=== PATIENT | female | born 1955 | race Caucasian/White ===

== ENCOUNTER 2017-07-26 20:26 | Inpatient (IN) | payer OTHER ==
[~2017-07-26] VITALS: Ht 165.1 cm; Wt 51.8 kg
[2017-07-26 21:49] LABS: HEMATOCRIT 36.2 % (36.0-46.0); MCH 26.7 PG (29.0-34.0); MCHC 32.9 G/DL (30.0-36.0); MEAN PLAT.VOLUME 10.6 uM^3 (9.5-12.4); PLATELET COUNT 150 K/uL (156-360); RBC DIS.WIDTH-CV 14.6 % (11.8-14.6); RBC DIS.WIDTH-SD 43.5 % (39-53); RED BLOOD COUNT 4.45 M/uL (3.80-5.20); WHITE BLOOD COUNT 10.8 K/uL (4.1-10.2)
[2017-07-26 21:52] LABS: MCV 81.3 FL (83-99)
[2017-07-26 22:03] LABS: CHLORIDE 95 mEq/L (99-109); POTASSIUM 3.9 mEq/L (3.7-5.4); SODIUM 131 mEq/L (136-147)
[2017-07-26 22:06] LABS: GLUCOSE 117 mg/dL (70-99)
[2017-07-26 22:07] LABS: ANION GAP 12 MEQ/L (2-14)
[2017-07-26 22:08] LABS: TOTAL BILIRUBIN 1.3 mg/dL (0.0-1.0)
[2017-07-26 22:09] LABS: ALKALINE PHOSPHATASE 140 IU/L (3-129); GFR ESTIMATE (CALCULATED) > 59 mL/min/
[2017-07-26 22:10] LABS: UREA NITROGEN (BUN) 8 mg/dL (9-23)
[2017-07-26 22:13] LABS: LIPASE 12 U/L (1.0-51.0)
[2017-07-26 22:15] LABS: TROP-I INTERPRETATION NEGATIVE; TROPONIN-I 0.02 ng/mL (0.0-0.30)
[2017-07-27] VITALS (12 sets, daily range): BP systolic 88–126; BP diastolic 44–64
[2017-07-27] MEDS ORDERED: FLUARIX QU60 MCG/0.4 IM (00:59)
[2017-07-27] MEDS ORDERED: SINGULAIR10 MG PO (00:59)
[2017-07-27] MEDS ORDERED: METOPROLOL SUCC25 MG PO (01:00)
[2017-07-27] MEDS ORDERED: LO-DOSE ASPIRIN81 M1 PO (01:00)
[2017-07-27 02:13] LABS: MAGNESIUM 1.7 mg/dL (1.3-2.7)
[2017-07-27 08:44] LABS: HEMATOCRIT 31.8 % (36.0-46.0); MCH 26.1 PG (29.0-34.0); MCHC 32.1 G/DL (30.0-36.0); MCV 81.3 FL (83-99); MEAN PLAT.VOLUME 10.6 uM^3 (9.5-12.4); PLATELET COUNT 119 K/uL (156-360); RBC DIS.WIDTH-SD 44.5 % (39-53); RED BLOOD COUNT 3.91 M/uL (3.80-5.20); WHITE BLOOD COUNT 8.3 K/uL (4.1-10.2)
[2017-07-27 09:16] LABS: ANION GAP 10 MEQ/L (2-14); CHLORIDE 100 MEQ/L (99-109); GFR ESTIMATE (CALCULATED) > 59 mL/min/; GLUCOSE 144 mg/dL (70-99); POTASSIUM 3.8 MEQ/L (3.7-5.4); SAMPLE HEMOLYSIS CHECK 0; SAMPLE ICTERIC CHECK 0; SAMPLE LIPEMIA CHECK 0; SODIUM 132 MEQ/L (136-147); UREA NITROGEN (BUN) 8 mg/dL (9-23)
[2017-07-27 18:04] LABS: METH RESISTANT S AUREUS PCR NEGATIVE (NEGATIVE); PROBE CHECK PASS; SPECIMEN PROCESSING CONTROL PASS
[2017-07-28 02:42] VITALS: BP 118/72
[2017-07-28 05:32] LABS: HEMATOCRIT 32.8 % (36.0-46.0); MCH 27.2 PG (29.0-34.0); MCHC 32.6 G/DL (30.0-36.0); MCV 83.5 FL (83-99); MEAN PLAT.VOLUME 11.3 uM^3 (9.5-12.4); PLATELET COUNT 149 K/uL (156-360); RBC DIS.WIDTH-CV 15.1 % (11.8-14.6); RBC DIS.WIDTH-SD 46.3 % (39-53); RED BLOOD COUNT 3.93 M/uL (3.80-5.20); WHITE BLOOD COUNT 8.8 K/uL (4.1-10.2)
[2017-07-28 05:56] LABS: IMMUNOGLOBULIN A 124 MG/DL (40-350); IMMUNOGLOBULIN G 651 MG/DL (650-1600); IMMUNOGLOBULIN M 141 MG/DL (50-300)
[2017-07-28 05:58] LABS: ALKALINE PHOSPHATASE 161 IU/L (3-129); ANION GAP 8 MEQ/L (2-14); CHLORIDE 102 MEQ/L (99-109); GFR ESTIMATE (CALCULATED) > 59 mL/min/; POTASSIUM 4.1 MEQ/L (3.7-5.4); SAMPLE HEMOLYSIS CHECK 0; SAMPLE ICTERIC CHECK 0; SAMPLE LIPEMIA CHECK 0; SODIUM 135 MEQ/L (136-147); TOTAL BILIRUBIN 1.1 MG/DL (0.0-1.0); UREA NITROGEN (BUN) 7 mg/dL (9-23)
[2017-07-28 05:59] LABS: GLUCOSE 102 mg/dL (70-99)
[2017-07-28 08:00] VITALS: BP 120/62
[2017-07-28 13:01] VITALS: BP 112/58
[2017-07-28 16:00] VITALS: BP 114/56
[2017-07-28 17:10] VITALS: BP 140/75
[2017-07-28 20:57] VITALS: BP 111/62
[2017-07-29] VITALS (7 sets, daily range): BP systolic 108–127; BP diastolic 54–68
[2017-07-29 06:32] LABS: HEMATOCRIT 31.9 % (36.0-46.0); MCH 27.3 PG (29.0-34.0); MCHC 32.9 G/DL (30.0-36.0); MCV 83.1 FL (83-99); MEAN PLAT.VOLUME 10.6 uM^3 (9.5-12.4); PLATELET COUNT 182 K/uL (156-360); RBC DIS.WIDTH-CV 15.2 % (11.8-14.6); RBC DIS.WIDTH-SD 46.5 % (39-53); RED BLOOD COUNT 3.84 M/uL (3.80-5.20); WHITE BLOOD COUNT 7.7 K/uL (4.1-10.2)
[2017-07-29 06:54] LABS: ANION GAP 7 MEQ/L (2-14); CHLORIDE 102 MEQ/L (99-109); GFR ESTIMATE (CALCULATED) > 59 mL/min/; GLUCOSE 97 mg/dL (70-99); SAMPLE HEMOLYSIS CHECK 1; SAMPLE ICTERIC CHECK 0; SAMPLE LIPEMIA CHECK 0; SODIUM 136 MEQ/L (136-147); UREA NITROGEN (BUN) 6 mg/dL (9-23)
[2017-07-30 04:35] VITALS: BP 127/63
[2017-07-30 07:34] VITALS: BP 112/66
[2017-07-30] MEDS ORDERED: LEVOFLOXACIN750 MG PO (08:22)
[2017-08-02 21:23] LABS: Mycelial Phase Antibody <1:8 (<1:8); Yeast Phase Anitbody <1:8 (<1:8)
[2017-08-02 21:23] LABS: Coccidioides Ab, CF <1:2 (<1:2); Coccidioides Ab, ID Negative (Negative)
== END 2017-07-30 10:38 | disposition home or self-care (01) | DRG 190 ==
LOC: EME 20:26 → EDOF 07-27 01:42 → 4EAST 07-27 01:42 → 3EAST 07-27 01:42 → ENRESERV 07-27 01:46 → 4EAST 07-27 03:09 → ENRESERV 07-28 15:58 → 3EAST 07-28 16:48
PROVIDERS: Emergency Medicine; Internal Medicine
DX: J44.0 Chronic obstructive pulmonary disease with (acute) lower respiratory infection (principal); J18.9 Pneumonia, unspecified organism; J44.1 Chronic obstructive pulmonary disease with (acute) exacerbation; I48.2 Chronic atrial fibrillation; M81.0 Age-related osteoporosis without current pathological fracture; K22.9 Disease of esophagus, unspecified; Z87.01 Personal history of pneumonia (recurrent); Z79.899 Other long term (current) drug therapy; Z79.82 Long term (current) use of aspirin; Z78.9 Other specified health status; Z77.22 Contact with and (suspected) exposure to environmental tobacco smoke (acute) (chronic)
CPT/HCPCS: 71010; 71020; 71275; 80048; 80053; 82784 90; 83605; 83690; 83735; 83880; 84484; 85027; 85379; 86003 90; 86635 90; 86698 90; 87040; 87070; 87116; 87205; 87206; 87449; 87641; 87899; 93005; 93306; 94010; 94640; 94640 76; 94760; 99202; 99281; 99285; J0456; J0692; J0696; J1650; J1956; J2405; J7030; J7050